=== PATIENT | female | born 1935 | race Caucasian/White ===

== ENCOUNTER 2016-04-08 11:43 | Emergency (ER) | payer MEDICARE, BC ==
[2016-04-08 12:48] LABS: BASOPHILS 0.4 % (0.0-2.0); EOSINOPHILS 0.6 % (0-7); HEMATOCRIT 41.3 % (36.0-48.0); LYMPHOCYTES 28.3 % (15-50); MCH 32.8 pg (26.0-34.0); MCHC 33.9 g/dL (31.0-37.0); MCV 96.7 fL (80.0-100.0); MEAN PLATELET VOLUME 9.8 fL (7.4-10.4); MONOCYTES 4.6 % (2-11); NEUTROPHILS 66.1 % (40-80); PLATELET COUNT 280 10x3/uL (130-400); RBC 4.27 10x6/uL (4.00-5.40); RDW 13.3 % (11.5-14.5); WBC 6.8 10x3/uL (4.8-10.8)
[2016-04-08 12:50] LABS: APPEARANCE HAZY (CLEAR); BILIRUBIN NEGATIVE (NEGATIVE); COLOR STRAW (YELLOW); GLUCOSE NEGATIVE (NEGATIVE); KETONE NEGATIVE (NEGATIVE); LEUKOCYTE ESTERASE NEGATIVE (NEGATIVE); NITRITE NEGATIVE (NEGATIVE); PROTEIN NEGATIVE (NEGATIVE); UROBILINOGEN NORMAL (NORMAL)
[2016-04-08 13:01] LABS: UDS - AMPHET NEGATIVE QUAL (NEGATIVE); UDS - BARB NEGATIVE QUAL (NEGATIVE); UDS - BENZO POSITIVE QUAL (NEGATIVE); UDS - COCAINE NEGATIVE QUAL (NEGATIVE); UDS - METH NEGATIVE QUAL (NEGATIVE); UDS - OPIATE NEGATIVE QUAL (NEGATIVE); UDS - PCP NEGATIVE QUAL (NEGATIVE); UDS - THC NEGATIVE QUAL (NEGATIVE)
[2016-04-08 13:04] LABS: ALBUMIN 3.6 g/dL (3.4-5.0); ANION GAP 9.5 mmol/L (8-16); BILIRUBIN - TOTAL 0.5 mg/dL (0.2-1.3); CARBON DIOXIDE 31.2 mmol/L (21.0-32.0); CREATININE - SERUM 0.9 mg/dL (0.6-1.3); POTASSIUM - SERUM 3.7 mmol/L (3.5-5.1); PROTEIN - SERUM 7.4 g/dL (6.4-8.2)
== END 2016-04-08 19:00 | disposition home or self-care (01) ==
LOC: D.ER 11:43
PROVIDERS: Emergency Medicine
DX: Z91.14 Patient's other noncompliance with medication regimen (principal); R00.1 Bradycardia, unspecified; I25.10 Atherosclerotic heart disease of native coronary artery without angina pectoris; F32.9 Major depressive disorder, single episode, unspecified; I10 Essential (primary) hypertension; F17.200 Nicotine dependence, unspecified, uncomplicated

== ENCOUNTER 2016-04-26 18:07 | Emergency (ER) | payer MEDICARE, BC ==
[2016-04-26 18:52] LABS: APPEARANCE CLEAR (CLEAR); BILIRUBIN NEGATIVE (NEGATIVE); COLOR STRAW (YELLOW); GLUCOSE NEGATIVE (NEGATIVE); KETONE NEGATIVE (NEGATIVE); LEUKOCYTE ESTERASE NEGATIVE (NEGATIVE); NITRITE NEGATIVE (NEGATIVE); PH 5.5 (5.0-6.0); PROTEIN NEGATIVE (NEGATIVE); UROBILINOGEN NORMAL (NORMAL)
[2016-04-26 18:57] LABS: UDS - AMPHET NEGATIVE QUAL (NEGATIVE); UDS - BARB NEGATIVE QUAL (NEGATIVE); UDS - BENZO NEGATIVE QUAL (NEGATIVE); UDS - COCAINE NEGATIVE QUAL (NEGATIVE); UDS - METH NEGATIVE QUAL (NEGATIVE); UDS - OPIATE NEGATIVE QUAL (NEGATIVE); UDS - PCP NEGATIVE QUAL (NEGATIVE); UDS - THC NEGATIVE QUAL (NEGATIVE)
[2016-04-26 19:00] LABS: BASOPHILS 0.6 % (0.0-2.0); EOSINOPHILS 1.1 % (0-7); HEMATOCRIT 45.9 % (36.0-48.0); HEMOGLOBIN 15.6 g/dL (12-16); IMMATURE GRANULOCYTES 0.2 % (0-5); LYMPHOCYTES 26.1 % (15-50); MCH 33.6 pg (26.0-34.0); MCV 98.9 fL (80.0-100.0); MEAN PLATELET VOLUME 9.8 fL (7.4-10.4); MONOCYTES 3.8 % (2-11); NEUTROPHILS 68.2 % (40-80); PLATELET COUNT 259 10x3/uL (130-400); RBC 4.64 10x6/uL (4.00-5.40); RDW 14.1 % (11.5-14.5); WBC 6.6 10x3/uL (4.8-10.8)
[2016-04-26 19:13] LABS: ALBUMIN 3.9 g/dL (3.4-5.0); ALKALINE PHOSPHATASE 57 U/L (46-116); ALT (SGPT) 21 U/L (10-68); BILIRUBIN - TOTAL 0.32 mg/dL (0.2-1.3); CALC OSMOLALITY 275 mosm/kg (275-300); CALCIUM 9.1 mg/dL (8.5-10.1); CARBON DIOXIDE 30.6 mmol/L (21.0-32.0); CHLORIDE - SERUM 99 mmol/L (98-107); CREATININE - SERUM 0.7 mg/dL (0.6-1.3); GLUCOSE 96 mg/dL (74-106); POTASSIUM - SERUM 3.8 mmol/L (3.5-5.1); PROTEIN - SERUM 7.6 g/dL (6.4-8.2); SODIUM 139 mmol/L (136-145); UREA NITROGEN 6 mg/dL (7-18); eGFR NON AFRICAN AMERICAN 85 mL/min (90-120)
== END 2016-04-26 21:50 | disposition home or self-care (01) ==
LOC: D.ER 18:07
PROVIDERS: Emergency Medicine
DX: F10.10 Alcohol abuse, uncomplicated (principal); F43.20 Adjustment disorder, unspecified; F33.9 Major depressive disorder, recurrent, unspecified; I25.10 Atherosclerotic heart disease of native coronary artery without angina pectoris; I10 Essential (primary) hypertension; F17.200 Nicotine dependence, unspecified, uncomplicated

== ENCOUNTER → 2016-04-28 16:51 | Outpatient (CLI) | payer MEDICARE, BC | END | disposition home or self-care (01) | LOC: D.MAMMO 10:00 | DX: Z12.31 Encounter for screening mammogram for malignant neoplasm of breast (principal); R41.82 Altered mental status, unspecified ==

== ENCOUNTER → 2016-05-19 10:08 | Outpatient (CLI) | payer MEDICARE, BC ==
--- NOTE | 2016-05-21 08:21 | EEG ---
PATIENT:CARMEN KELLEY DATE OF SERVICE: 05/19/16 MEDICAL RECORD: [id number] DATE OF : 33 LOCATION: [facility] ADMISSION DATE: 05/19/16 REFERRING PHYSICIAN: INTERPRETING PHYSICIAN: SADIE TORRES MD DATE OF SERVICE: 05/19/2016 Referred as an outpatient by myself. ELECTROENCEPHALOGRAM NUMBER: [id number] DATE OF EXAMINATION: 05/19/2016 at 10:45 a.m. TECHNICAL DATA: This electroencephalographic recording consists of approximately 20 minutes of data collection utilizing the international 10/20 system of electrode placement and both referential and non-referential montages. Sixteen channels of electrocerebral recording are accompanied by a 17th channel dedicated to the electrocardiographic rhythm and 2 channels of electromyographic recording. Recording is performed in the awake and drowsy states utilizing activation by photic stimulation. ELECTROENCEPHALOGRAPHIC DATA: The awake state comprises approximately 60% of the recorded electrocerebral activity. Electromyographic artifact is prominent and rapid eye movements are seen. The posterior dominant background consists of a symmetric, semi-arrhythmic waxing and waning 8-9 Hz alpha activity, which is suppressed by eye opening. The drowsy state comprises the remaining portion of the recorded electrocerebral activity. Electromyographic artifact is diminished and rapid eye movements are not seen. The posterior dominant background is at times relatively suppressed. Few brief 15 Hz sleep spindles are observed, but the patient does not establish a pattern of stage II sleep. No abnormal or focal slowing is identified. No epileptiform discharges are seen. Photic stimulation induces no abnormal change in the recorded electrocerebral activity. INTERPRETATION: Normal (awake and drowsy). This is a normal electroencephalographic recording. TRANSINT:[id number] Voice Confirmation ID: [id number] DOCUMENT ID: [id number] SADIE TORRES MD at 0821 CC: [id number] DICTATION DATE: 05/20/16 0756 DIGITAL MEDIA BU[employer]ER: 05/20/16 1122 DEP CLI 05/19/16 [id number] [place] [address]
== END | disposition home or self-care (01) ==
LOC: D.CN 05-14 11:00
DX: E78.2 Mixed hyperlipidemia (principal); R41.2 Retrograde amnesia

== ENCOUNTER → 2018-07-15 09:44 | Outpatient (CLI) | payer MEDICARE | END | disposition home or self-care (01) | LOC: D.RT 09:44 | PROVIDERS: ATTEND Internal Medicine Pulmonary Disease | DX: J44.9 Chronic obstructive pulmonary disease, unspecified (principal) ==

== ENCOUNTER → 2018-08-10 13:08 | Outpatient (CLI) | payer MEDICARE | END | disposition home or self-care (01) | LOC: D.CT 13:00 | PROVIDERS: ATTEND Internal Medicine Pulmonary Disease | DX: R94.2 Abnormal results of pulmonary function studies (principal) ==

== ENCOUNTER → 2018-09-14 13:13 | Outpatient (CLI) | payer MEDICARE | END | disposition home or self-care (01) | LOC: D.HCCARDIO 13:13 | PROVIDERS: ATTEND Internal Medicine Cardiovascular Disease | DX: I25.10 Atherosclerotic heart disease of native coronary artery without angina pectoris (principal) ==

== ENCOUNTER 2018-11-02 11:00 | Outpatient (CLI) | payer MEDICARE | END 2018-11-02 11:30 | disposition home or self-care (01) | LOC: D.MAMMO 11:00 | PROVIDERS: ATTEND Family Medicine | DX: Z12.31 Encounter for screening mammogram for malignant neoplasm of breast (principal) ==

== ENCOUNTER → 2019-03-08 13:43 | Outpatient (CLI) | payer MEDICARE | END | disposition home or self-care (01) | LOC: D.CT 03-07 11:00 | PROVIDERS: ATTEND Internal Medicine Pulmonary Disease | DX: R94.2 Abnormal results of pulmonary function studies (principal) ==

== ENCOUNTER → 2019-09-12 12:48 | Outpatient (CLI) | payer MEDICARE | END | disposition home or self-care (01) | LOC: D.CT 12:48 | PROVIDERS: ATTEND Internal Medicine Pulmonary Disease | DX: R94.2 Abnormal results of pulmonary function studies (principal) ==

== ENCOUNTER → 2019-09-21 13:08 | Outpatient (CLI) | payer MEDICARE | END | disposition home or self-care (01) | LOC: D.HCCECHO 13:08 | PROVIDERS: ATTEND Internal Medicine Cardiovascular Disease | DX: I25.10 Atherosclerotic heart disease of native coronary artery without angina pectoris (principal) ==

== ENCOUNTER 2019-12-05 16:11 | Emergency (ER) | payer MEDICARE ==
[~2019-12-05] VITALS: Ht 162.6 cm; Wt 60.5 kg
[2019-12-05 16:16] VITALS: Ht 162.6 cm; Wt 60.5 kg
[2019-12-05] MEDS ORDERED: CIPRO500 MG PO (16:33)
[2019-12-05] MEDS ORDERED: LEXAPRO20 MG PO (16:33)
[2019-12-05] MEDS ORDERED: KLONOPIN0.5 MG PO (16:34)
[2019-12-05] MEDS ORDERED: COREG6.25 MG PO (16:34)
[2019-12-05] MEDS ORDERED: COZAAR50 MG PO (16:35)
[2019-12-05 17:01] LABS: APTT 26.8 SECONDS (22.8-39.4); INR 0.92 (0.85-1.17); PROTIME 12.3 SECONDS (11.6-15.0)
[2019-12-05 17:04] LABS: BASOPHILS 0.4 % (0-2); EOSINOPHILS 1.2 % (0-7); HEMATOCRIT 41.2 % (36.0-48.0); HEMOGLOBIN 14.1 g/dL (12-16); IMMATURE GRANULOCYTES 0.1 % (0-5); LYMPHOCYTES 23.5 % (15-50); MCH 32.3 pg (26.0-34.0); MCHC 34.2 g/dL (31.0-37.0); MCV 94.5 fL (80.0-100.0); MEAN PLATELET VOLUME 9.8 fL (7.4-10.4); MONOCYTES 6.1 % (2-11); NEUTROPHILS 68.7 % (40-80); PLATELET COUNT 252 10x3/uL (130-400); RBC 4.36 10x6/uL (4.00-5.40); RDW 12.8 % (11.5-14.5); WBC 7.7 10x3/uL (4.8-10.8)
[2019-12-05 17:05] LABS: CALC OSMOLALITY 274 mosm/kg (275-300); CALCIUM 8.7 mg/dL (8.5-10.1); CARBON DIOXIDE 26.1 mmol/L (21.0-32.0); CHLORIDE - SERUM 103 mmol/L (98-107); POTASSIUM - SERUM 3.8 mmol/L (3.5-5.1); SODIUM 135 mmol/L (136-145); UREA NITROGEN 17 mg/dL (7-18); eGFR NON AFRICAN AMERICAN 56 mL/min (90-120)
[2019-12-05 17:12] LABS: GLUCOSE 149 mg/dL (74-106)
[2019-12-05 17:22] LABS: ALBUMIN 3.4 g/dL (3.4-5.0); ALKALINE PHOSPHATASE 62 U/L (30-120); ALT (SGPT) 15 U/L (10-68); CKMB 1.4 U/L (0.0-3.6); CREATINE KINASE 56 UL (21-215); PROTEIN - SERUM 7.1 g/dL (6.4-8.2); TROPONIN-I < 0.017 ng/mL (0.000-0.060)
[2019-12-05] MEDS ORDERED: ZIPSOR25 MG PO (18:07)
[2019-12-05 18:27] VITALS: BP 156/87
== END 2019-12-05 18:27 | disposition home or self-care (01) ==
LOC: D.ER 16:11
PROVIDERS: Emergency Medicine
DX: M50.30 Other cervical disc degeneration, unspecified cervical region (principal); M19.90 Unspecified osteoarthritis, unspecified site; R07.89 Other chest pain; M25.512 Pain in left shoulder